=== PATIENT | female | born 1960 | race Caucasian/White ===

== ENCOUNTER 2016-12-09 09:02 | Day surgery (SDC) | payer OTHER ==
[~2016-12-09] VITALS: Ht 165.1 cm; Wt 86.2 kg
[~2016-12-09 09:02] MED LIST: ADULT LOW STREN81 M2 PO; AMITRIPTYLINE100 MG PO; ASPIR 8181 M1 PO; AZULFIDINE500 MG PO; CALCIUM 1,2001 EACH PO; CALCIUM 600 MG1 EACH PO; CELEBREX200 MG PO; DAILY VALUE1 EACH PO; DEXILANT30 MG PO; DEXILANT60 MG PO; DOLOPHINE HCL10 MG PO; DOLOPHINE HCL5 MG PO; KLONOPIN0.5 M1 PO; LINZESS290 MCG PO; MAGNESIUM OXID200 MG PO; MAGNESIUM400 M1 PO; MAGOX 400400 MG PO; MELADOX3 MG PO; MELATONIN5 M1 PO; MOBIC15 MG PO; MULTI-VITAMIN1 EAC1 PO; NEURONTIN600 M1 PO; NEURONTIN600 MG PO; PLAQUENIL200 MG PO; PLAVIX75 MG PO; PREMARIN0.625 MG PO; ROBAXIN500 MG PO; SEROQUEL12.5 MG PO; SULFAZINE500 M1 PO; SYNTHROID175 MCG PO; SYNTHROID200 MCG PO; VERAPAMIL HCL240 M1 PO; VERAPAMIL HCL240 MG PO; VITAMIN C2000 MG PO; VITAMIN D400 UNI1 PO; ZANAFLEX2 M1 PO; ZOLOFT100 MG PO; ZOLOFT25 MG PO; ZOLOFT50 MG PO
== END 2016-12-09 10:12 | disposition home or self-care (01) ==
LOC: PAIN 09:02 → SDC 09:45 → PAIN 09:45
DX: M47.894 Other spondylosis, thoracic region (principal); M54.14 Radiculopathy, thoracic region; F41.1 Generalized anxiety disorder; M79.1 Myalgia; M41.9 Scoliosis, unspecified; M46.1 Sacroiliitis, not elsewhere classified; F17.200 Nicotine dependence, unspecified, uncomplicated; M50.30 Other cervical disc degeneration, unspecified cervical region; K21.9 Gastro-esophageal reflux disease without esophagitis; M54.12 Radiculopathy, cervical region
CPT/HCPCS: J1030; J2250; J3010; S0020

== ENCOUNTER 2017-01-15 12:06 | Day surgery (SDC) | payer OTHER ==
[~2017-01-15] VITALS: Ht 165.1 cm; Wt 85.3 kg
== END 2017-01-15 14:13 | disposition home or self-care (01) ==
LOC: PAIN 12:06 → SDC 12:30 → PAIN 12:30
DX: M47.894 Other spondylosis, thoracic region (principal); F41.1 Generalized anxiety disorder; M41.9 Scoliosis, unspecified; M54.12 Radiculopathy, cervical region; E78.5 Hyperlipidemia, unspecified; F17.200 Nicotine dependence, unspecified, uncomplicated; M79.7 Fibromyalgia; K21.9 Gastro-esophageal reflux disease without esophagitis
CPT/HCPCS: J1030; J2250; J3010; S0020

== ENCOUNTER 2017-02-15 12:34 | Inpatient (IN) | payer OTHER ==
[~2017-02-15] VITALS: Ht 165.1 cm; Wt 91.5 kg
[2017-02-15 13:06] LABS: HEMATOCRIT 43.3 % (36.0-46.0); MCH 32.9 PG (29.0-34.0); MCHC 32.8 G/DL (30.0-36.0); MCV 100.5 FL (83-99); PLATELET COUNT 310 K/uL (156-360); RBC DIS.WIDTH-CV 12.4 % (11.8-14.6); RBC DIS.WIDTH-SD 46.8 % (39-53); RED BLOOD COUNT 4.31 M/uL (3.80-5.20); WHITE BLOOD COUNT 9.5 K/uL (4.1-10.2)
[2017-02-15 13:14] LABS: ADD MIUA? YES; BILIRUBIN NEGATIVE; BLOOD NEGATIVE; GLUCOSE (STRIP) NEGATIVE; KETONES NEGATIVE; LEUKOCYTES TRACE; NITRITE NEGATIVE; PROTEIN (STRIP) 30
[2017-02-15 13:15] LABS: COLOR YELLOW ((YELLOW))
[2017-02-15 13:16] LABS: CHLORIDE 100 mEq/L (99-109); POTASSIUM 4.1 mEq/L (3.7-5.4); SODIUM 137 mEq/L (136-147)
[2017-02-15 13:18] LABS: GLUCOSE 113 mg/dL (70-99)
[2017-02-15 13:19] LABS: ANION GAP 11 MEQ/L (2-14)
[2017-02-15 13:20] LABS: TOTAL BILIRUBIN 0.5 mg/dL (0.0-1.0)
[2017-02-15 13:21] LABS: ALKALINE PHOSPHATASE 72 IU/L (3-129)
[2017-02-15 13:22] LABS: GFR ESTIMATE (CALCULATED) > 59 mL/min/
[2017-02-15 13:23] LABS: UREA NITROGEN (BUN) 9 mg/dL (9-23)
[2017-02-15 13:36] LABS: BACTERIA RARE /HPF; EPITHELIAL CELLS 1+ /HPF; MUCUS NONE SEEN /LPF; RED BLOOD CELLS 0-5 /HPF (0-5); UCUL ADDED? NO; WHITE BLOOD CELLS 0-5 /HPF (0-5)
[2017-02-15 13:37] LABS: CASTS NONE SEEN /LPF; CRYSTALS NONE SEEN
[2017-02-15] MEDS ORDERED: DAILY VITE1 EAC1 PO (16:32)
[2017-02-15] MEDS ORDERED: DOCUSATE SODIU250 MG PO (16:32)
[2017-02-15] MEDS ORDERED: ESTRADIOL0.5 MG PO (16:33)
[2017-02-15 21:40] VITALS: BP 143/82
[2017-02-15 23:42] VITALS: BP 170/74
[2017-02-16 01:00] VITALS: BP 133/61
[2017-02-16 03:52] VITALS: BP 138/65
[2017-02-16 07:10] LABS: EOSINOPHIL (%) 0 % (0-5); HEMATOCRIT 40.6 % (36.0-46.0); IMMATURE GRANULOCYTE (%) 0.5 % (0.0-0.7); IMMATURE GRANULOCYTE COUNT 0.1 K/uL; INSTRUMENT ABS NEUTROPHIL CT 13.1 K/uL; LYMPHOCYTE COUNT 1.5 K/uL (1.0-2.8); MCH 33.1 PG (29.0-34.0); MCHC 32.8 G/DL (30.0-36.0); MEAN PLAT.VOLUME 11.4 uM^3 (9.5-12.4); MONOCYTE (%) 4.1 % (3-12); MONOCYTE COUNT 0.6 K/uL (0-0.8); NEUTROPHIL (%) 85.7 % (45-76); NEUTROPHIL COUNT 13.1 K/uL (1.8-6.4); PLATELET COUNT 273 K/uL (156-360); RBC DIS.WIDTH-CV 12.5 % (11.8-14.6); RBC DIS.WIDTH-SD 46.8 % (39-53); RED BLOOD COUNT 4.02 M/uL (3.80-5.20)
[2017-02-16 07:17] LABS: WHITE BLOOD COUNT 15.3 K/uL (4.1-10.2)
[2017-02-16 07:18] LABS: ANION GAP 8 MEQ/L (2-14); CHLORIDE 106 MEQ/L (99-109); GFR ESTIMATE (CALCULATED) > 59 mL/min/; GLUCOSE 86 mg/dL (70-99); POTASSIUM 3.9 MEQ/L (3.7-5.4); SAMPLE HEMOLYSIS CHECK 0; SAMPLE ICTERIC CHECK 0; SAMPLE LIPEMIA CHECK 0; SODIUM 141 MEQ/L (136-147); UREA NITROGEN (BUN) 7 mg/dL (9-23)
[2017-02-16 08:00] VITALS: BP 112/68
[2017-02-16 11:37] LABS: C DIFF TOXIN NEGATIVE (NEGATIVE)
[2017-02-16 11:52] LABS: PROBE CHECK PASS; SPECIMEN PROCESSING CONTROL PASS
[2017-02-16 12:35] VITALS: BP 133/75
[2017-02-16 16:16] VITALS: BP 142/69
[2017-02-16 23:35] VITALS: BP 160/77
[2017-02-17 07:13] LABS: HEMATOCRIT 39.3 % (36.0-46.0); MCH 32.6 PG (29.0-34.0); MCHC 32.6 G/DL (30.0-36.0); MEAN PLAT.VOLUME 10.5 uM^3 (9.5-12.4); PLATELET COUNT 256 K/uL (156-360); RBC DIS.WIDTH-CV 12.5 % (11.8-14.6); RBC DIS.WIDTH-SD 46.3 % (39-53); RED BLOOD COUNT 3.93 M/uL (3.80-5.20); WHITE BLOOD COUNT 12.4 K/uL (4.1-10.2)
[2017-02-17 07:39] LABS: ANION GAP 11 MEQ/L (2-14); CHLORIDE 106 MEQ/L (99-109); GFR ESTIMATE (CALCULATED) > 59 mL/min/; GLUCOSE 80 mg/dL (70-99); POTASSIUM 3.9 MEQ/L (3.7-5.4); SAMPLE HEMOLYSIS CHECK 0; SAMPLE ICTERIC CHECK 0; SAMPLE LIPEMIA CHECK 0; SODIUM 142 MEQ/L (136-147); UREA NITROGEN (BUN) 7 mg/dL (9-23)
[2017-02-17 08:16] VITALS: BP 170/76
[2017-02-17 11:30] VITALS: BP 156/72
[2017-02-17 16:11] VITALS: BP 190/91
[2017-02-17 23:25] VITALS: BP 147/65
[2017-02-18 00:01] LABS: POINT-OF-CARE METER ID UU14162508
[2017-02-18 06:20] LABS: POINT-OF-CARE METER ID UU14162508
[2017-02-18 07:23] LABS: ANION GAP 14 MEQ/L (2-14); CHLORIDE 106 MEQ/L (99-109); GFR ESTIMATE (CALCULATED) > 59 mL/min/; GLUCOSE 70 mg/dL (70-99); POTASSIUM 3.2 MEQ/L (3.7-5.4); SAMPLE HEMOLYSIS CHECK 0; SAMPLE ICTERIC CHECK 0; SAMPLE LIPEMIA CHECK 0; SODIUM 142 MEQ/L (136-147); UREA NITROGEN (BUN) 6 mg/dL (9-23)
[2017-02-18 07:41] LABS: HEMATOCRIT 37.9 % (36.0-46.0); MCH 32.9 PG (29.0-34.0); MCHC 33.2 G/DL (30.0-36.0); MEAN PLAT.VOLUME 10.5 uM^3 (9.5-12.4); PLATELET COUNT 261 K/uL (156-360); RBC DIS.WIDTH-CV 12.4 % (11.8-14.6); RBC DIS.WIDTH-SD 44.6 % (39-53); RED BLOOD COUNT 3.83 M/uL (3.80-5.20)
[2017-02-18 08:00] VITALS: BP 190/80
[2017-02-18 11:59] LABS: POINT-OF-CARE METER ID UU14162508
[2017-02-18 16:58] VITALS: BP 162/76
[2017-02-18 18:34] LABS: POINT-OF-CARE METER ID UU14162508
[2017-02-18 23:23] VITALS: BP 178/81
[2017-02-19 07:23] LABS: ANION GAP 8 MEQ/L (2-14); CHLORIDE 106 MEQ/L (99-109); GFR ESTIMATE (CALCULATED) > 59 mL/min/; POTASSIUM 3.5 MEQ/L (3.7-5.4); SAMPLE HEMOLYSIS CHECK 0; SAMPLE ICTERIC CHECK 0; SAMPLE LIPEMIA CHECK 0; SODIUM 141 MEQ/L (136-147); UREA NITROGEN (BUN) 6 mg/dL (9-23)
[2017-02-19 07:24] LABS: GLUCOSE 113 mg/dL (70-99)
[2017-02-19 07:45] VITALS: BP 172/80
[2017-02-19 10:10] VITALS: BP 154/78
[2017-02-19 10:20] LABS: MAGNESIUM 1.6 mg/dl (1.3-2.7)
[2017-02-19 12:00] VITALS: BP 148/77
[2017-02-19 15:35] VITALS: BP 146/65
[2017-02-19 21:19] VITALS: BP 191/84
[2017-02-20 01:28] VITALS: BP 136/63
[2017-02-20 03:06] VITALS: BP 144/65
[2017-02-20 06:36] LABS: POINT-OF-CARE METER ID UU14162508
[2017-02-20 06:51] VITALS: BP 149/70
[2017-02-20 06:52] LABS: ANION GAP 8 MEQ/L (2-14); CHLORIDE 107 MEQ/L (99-109); GFR ESTIMATE (CALCULATED) > 59 mL/min/; GLUCOSE 131 mg/dL (70-99); POTASSIUM 3.7 MEQ/L (3.7-5.4); SAMPLE HEMOLYSIS CHECK 0; SAMPLE ICTERIC CHECK 0; SAMPLE LIPEMIA CHECK 0; SODIUM 142 MEQ/L (136-147); UREA NITROGEN (BUN) 5 mg/dL (9-23)
[2017-02-20 10:27] VITALS: BP 143/81
[2017-02-20 15:10] VITALS: BP 150/75
[2017-02-20 23:27] VITALS: BP 146/71
[2017-02-21 06:53] VITALS: BP 137/63
[2017-02-21 07:33] LABS: ANION GAP 9 MEQ/L (2-14); CHLORIDE 104 MEQ/L (99-109); GFR ESTIMATE (CALCULATED) > 59 mL/min/; GLUCOSE 100 mg/dL (70-99); POTASSIUM 3.4 MEQ/L (3.7-5.4); SAMPLE HEMOLYSIS CHECK 0; SAMPLE ICTERIC CHECK 0; SAMPLE LIPEMIA CHECK 0; SODIUM 141 MEQ/L (136-147); UREA NITROGEN (BUN) 6 mg/dL (9-23)
[2017-02-21] MEDS ORDERED: SULFAZINE500 M1 PO (08:04)
[2017-02-21] MEDS ORDERED: NICOTINE PATCH1 EAC2 TD (08:12)
[2017-02-21] MEDS ORDERED: PREDNISONE10 MG PO (08:12)
[2017-02-21] MEDS ORDERED: FLAGYL500 MG PO (08:12)
[2017-02-21] MEDS ORDERED: PROCARDIA20 MG PO (08:12)
[2017-02-21] MEDS ORDERED: CIPRO500 MG PO (08:12)
== END 2017-02-21 14:45 | disposition home or self-care (01) | DRG 386 ==
LOC: EME 12:34 → 2EAST 20:11 → EDOF 20:11 → 2EAST 21:01
PROVIDERS: Hospitalist
DX: K50.012 Crohn's disease of small intestine with intestinal obstruction (principal); E87.6 Hypokalemia; I10 Essential (primary) hypertension; E03.9 Hypothyroidism, unspecified; M06.9 Rheumatoid arthritis, unspecified; I73.9 Peripheral vascular disease, unspecified; Z95.820 Peripheral vascular angioplasty status with implants and grafts; F32.9 Major depressive disorder, single episode, unspecified; G89.4 Chronic pain syndrome; Z79.891 Long term (current) use of opiate analgesic; E66.9 Obesity, unspecified; Z68.33 Body mass index [BMI] 33.0-33.9, adult; M79.7 Fibromyalgia; K21.9 Gastro-esophageal reflux disease without esophagitis; G43.909 Migraine, unspecified, not intractable, without status migrainosus; F17.210 Nicotine dependence, cigarettes, uncomplicated; Z86.73 Personal history of transient ischemic attack (TIA), and cerebral infarction without residual deficits; Z86.010 Personal history of colon polyps
CPT/HCPCS: 71010; 74000; 74020; 74176; 74177; 80048; 80053; 81003; 82948; 83605; 83735; 85025; 85027; 86140; 87493; 99281; 99285; J0360; J0744; J1170; J1200; J1644; J2405; J2920; J2930; J3475; J3480; J7030; J7042; J7050; S0028; S0030

== ENCOUNTER 2017-03-15 03:56 | Inpatient (IN) | payer OTHER ==
[~2017-03-15] VITALS: Ht 165.1 cm; Wt 90.7 kg
[~2017-03-15 03:56] MED LIST changes: +CIPRO500 MG PO; +DAILY VITE1 EAC1 PO; +DOCUSATE SODIU250 MG PO; +ESTRADIOL0.5 MG PO; +FLAGYL500 MG PO; +NICOTINE PATCH1 EAC2 TD; +PREDNISONE10 MG PO; +PROCARDIA20 MG PO
[2017-03-15 04:55] LABS: EOSINOPHIL (%) 1.4 % (0-5); EOSINOPHIL COUNT 0.3 K/uL (0-0.3); IMMATURE GRANULOCYTE (%) 0.5 % (0.0-0.7); IMMATURE GRANULOCYTE COUNT 0.1 K/uL; INSTRUMENT ABS NEUTROPHIL CT 13.4 K/uL; LYMPHOCYTE COUNT 4.6 K/uL (1.0-2.8); MCH 33.2 PG (29.0-34.0); MCHC 33.9 G/DL (30.0-36.0); MEAN PLAT.VOLUME 10.5 uM^3 (9.5-12.4); MONOCYTE (%) 4.1 % (3-12); MONOCYTE COUNT 0.8 K/uL (0-0.8); NEUTROPHIL (%) 69.6 % (45-76); NEUTROPHIL COUNT 13.4 K/uL (1.8-6.4); PLATELET COUNT 319 K/uL (156-360); RBC DIS.WIDTH-CV 12.9 % (11.8-14.6); RBC DIS.WIDTH-SD 46.3 % (39-53)
[2017-03-15 05:03] LABS: RED BLOOD COUNT 5.51 M/uL (3.80-5.20); WHITE BLOOD COUNT 19.2 K/uL (4.1-10.2)
[2017-03-15 05:15] LABS: CHLORIDE 97 mEq/L (99-109); POTASSIUM 3.8 mEq/L (3.7-5.4); SODIUM 141 mEq/L (136-147)
[2017-03-15 05:17] LABS: GLUCOSE 159 mg/dL (70-99)
[2017-03-15 05:18] LABS: ANION GAP 20 MEQ/L (2-14)
[2017-03-15 05:19] LABS: TOTAL BILIRUBIN 0.6 mg/dL (0.0-1.0)
[2017-03-15 05:20] LABS: ALKALINE PHOSPHATASE 100 IU/L (3-129)
[2017-03-15 05:21] LABS: GFR ESTIMATE (CALCULATED) 54 mL/min/
[2017-03-15 05:22] LABS: UREA NITROGEN (BUN) 11 mg/dL (9-23)
[2017-03-15 05:24] LABS: LIPASE 16 U/L (1.0-51.0)
[2017-03-15 14:50] VITALS: BP 176/77
[2017-03-15 18:42] LABS: INTACT PARATHYROID HORMONE 76 pg/mL (10-69)
[2017-03-15 18:53] VITALS: BP 177/79
[2017-03-15] MEDS ORDERED: NICOTINE PATCH1 EAC2 TD (20:02)
[2017-03-15] MEDS ORDERED: PREDNISONE10 MG PO (20:04)
[2017-03-15] MEDS ORDERED: SULFASALAZINE500 MG PO (20:06)
[2017-03-15 23:20] VITALS: BP 175/81
[2017-03-16 03:01] VITALS: BP 132/77
[2017-03-16 07:17] LABS: ANION GAP 7 MEQ/L (2-14); CHLORIDE 103 MEQ/L (99-109); GLUCOSE 145 mg/dL (70-99); POTASSIUM 4.3 MEQ/L (3.7-5.4); SAMPLE HEMOLYSIS CHECK 0; SAMPLE ICTERIC CHECK 0; SAMPLE LIPEMIA CHECK 0; SODIUM 138 MEQ/L (136-147); UREA NITROGEN (BUN) 9 mg/dL (9-23)
[2017-03-16 07:20] LABS: GFR ESTIMATE (CALCULATED) > 59 mL/min/
[2017-03-16 08:10] VITALS: BP 165/72
[2017-03-16 10:05] LABS: HEMATOCRIT 37.9 % (36.0-46.0); MCH 33.2 PG (29.0-34.0); MCHC 32.2 G/DL (30.0-36.0); RBC DIS.WIDTH-CV 13.3 % (11.8-14.6); RBC DIS.WIDTH-SD 51.2 % (39-53); WHITE BLOOD COUNT 13.9 K/uL (4.1-10.2)
[2017-03-16 10:06] LABS: RED BLOOD COUNT 3.67 M/uL (3.80-5.20)
[2017-03-16 10:07] LABS: MCV 103.3 FL (83-99)
[2017-03-16 10:25] LABS: MEAN PLAT.VOLUME 10.6 uM^3 (9.5-12.4); PLAT.SUFFICIENCY ADEQUATE
[2017-03-16 10:31] LABS: PLATELET COUNT 209 K/uL (156-360)
[2017-03-16 12:24] VITALS: BP 163/71
[2017-03-16 16:10] VITALS: BP 154/70
[2017-03-16 19:20] VITALS: BP 174/78
[2017-03-16 23:59] VITALS: BP 168/73
[2017-03-17 04:13] VITALS: BP 169/73
[2017-03-17 07:05] LABS: HEMATOCRIT 37.7 % (36.0-46.0); MCH 32.7 PG (29.0-34.0); MCHC 32.1 G/DL (30.0-36.0); MCV 101.9 FL (83-99); MEAN PLAT.VOLUME 10.2 uM^3 (9.5-12.4); PLATELET COUNT 206 K/uL (156-360); RBC DIS.WIDTH-CV 13.2 % (11.8-14.6); RBC DIS.WIDTH-SD 49.8 % (39-53); WHITE BLOOD COUNT 13.7 K/uL (4.1-10.2)
[2017-03-17 07:23] VITALS: BP 178/82
[2017-03-17 07:24] LABS: ANION GAP 8 MEQ/L (2-14); CHLORIDE 105 MEQ/L (99-109); GFR ESTIMATE (CALCULATED) > 59 mL/min/; GLUCOSE 144 mg/dL (70-99); POTASSIUM 4.2 MEQ/L (3.7-5.4); SAMPLE HEMOLYSIS CHECK 0; SAMPLE ICTERIC CHECK 0; SAMPLE LIPEMIA CHECK 0; SODIUM 142 MEQ/L (136-147); UREA NITROGEN (BUN) 7 mg/dL (9-23)
[2017-03-17 11:40] VITALS: BP 190/84
[2017-03-17 15:29] VITALS: BP 182/83
[2017-03-17 19:22] VITALS: BP 180/83
[2017-03-17 23:17] VITALS: BP 138/68
[2017-03-18 03:24] VITALS: BP 183/80
[2017-03-18 06:25] LABS: EOSINOPHIL (%) 0 % (0-5); HEMATOCRIT 35.2 % (36.0-46.0); IMMATURE GRANULOCYTE (%) 0.5 % (0.0-0.7); IMMATURE GRANULOCYTE COUNT 0.1 K/uL; INSTRUMENT ABS NEUTROPHIL CT 8.7 K/uL; LYMPHOCYTE COUNT 0.8 K/uL (1.0-2.8); MCH 32.9 PG (29.0-34.0); MCHC 32.4 G/DL (30.0-36.0); MCV 101.7 FL (83-99); MEAN PLAT.VOLUME 10.3 uM^3 (9.5-12.4); MONOCYTE (%) 3.2 % (3-12); MONOCYTE COUNT 0.3 K/uL (0-0.8); NEUTROPHIL (%) 88.4 % (45-76); NEUTROPHIL COUNT 8.7 K/uL (1.8-6.4); PLATELET COUNT 205 K/uL (156-360); RBC DIS.WIDTH-CV 13.1 % (11.8-14.6); RBC DIS.WIDTH-SD 49.1 % (39-53); RED BLOOD COUNT 3.46 M/uL (3.80-5.20); WHITE BLOOD COUNT 9.8 K/uL (4.1-10.2)
[2017-03-18 06:49] LABS: ANION GAP 8 MEQ/L (2-14); CHLORIDE 106 MEQ/L (99-109); GFR ESTIMATE (CALCULATED) > 59 mL/min/; GLUCOSE 154 mg/dL (70-99); POTASSIUM 4.2 MEQ/L (3.7-5.4); SAMPLE HEMOLYSIS CHECK 0; SAMPLE ICTERIC CHECK 0; SAMPLE LIPEMIA CHECK 0; SODIUM 143 MEQ/L (136-147); UREA NITROGEN (BUN) 10 mg/dL (9-23)
[2017-03-18 19:14] VITALS: BP 181/79
[2017-03-18 20:27] VITALS: BP 170/62
[2017-03-18 23:04] VITALS: BP 185/76
[2017-03-18 23:08] VITALS: BP 172/62
[2017-03-19 03:04] VITALS: BP 165/73
[2017-03-19 06:52] LABS: EOSINOPHIL (%) 0.3 % (0-5); HEMATOCRIT 35.1 % (36.0-46.0); IMMATURE GRANULOCYTE (%) 0.5 % (0.0-0.7); IMMATURE GRANULOCYTE COUNT 0.1 K/uL; INSTRUMENT ABS NEUTROPHIL CT 6.6 K/uL; LYMPHOCYTE COUNT 2.3 K/uL (1.0-2.8); MCH 33.5 PG (29.0-34.0); MCHC 32.8 G/DL (30.0-36.0); MCV 102.3 FL (83-99); MEAN PLAT.VOLUME 10.7 uM^3 (9.5-12.4); MONOCYTE (%) 6.1 % (3-12); MONOCYTE COUNT 0.6 K/uL (0-0.8); NEUTROPHIL (%) 69.2 % (45-76); NEUTROPHIL COUNT 6.6 K/uL (1.8-6.4); PLATELET COUNT 243 K/uL (156-360); RBC DIS.WIDTH-CV 13.5 % (11.8-14.6); RED BLOOD COUNT 3.43 M/uL (3.80-5.20); WHITE BLOOD COUNT 9.6 K/uL (4.1-10.2)
[2017-03-19 07:15] LABS: ANION GAP 8 MEQ/L (2-14); CHLORIDE 107 MEQ/L (99-109); GFR ESTIMATE (CALCULATED) > 59 mL/min/; POTASSIUM 3.6 MEQ/L (3.7-5.4); SAMPLE HEMOLYSIS CHECK 0; SAMPLE ICTERIC CHECK 0; SAMPLE LIPEMIA CHECK 0; SODIUM 143 MEQ/L (136-147); UREA NITROGEN (BUN) 9 mg/dL (9-23)
[2017-03-19 07:17] LABS: GLUCOSE 104 mg/dL (70-99)
[2017-03-19 07:20] VITALS: BP 169/72
[2017-03-19] MEDS ORDERED: DILAUDID4 MG PO (10:27)
[2017-03-19] MEDS ORDERED: BENADRYL25 MG PO (10:27)
[2017-03-19] MEDS ORDERED: LISINOPRIL20 MG PO ×2 (10:43→13:54)
[2017-03-19] MEDS ORDERED: NICOTINE PATCH1 EAC1 TD (10:43)
[2017-03-19] MEDS ORDERED: LOPRESSOR50 MG PO (10:43)
[2017-03-19] MEDS ORDERED: DUONEB 2.5-0.5 M3 ML AEROSOL (10:43)
[2017-03-19] MEDS ORDERED: SPIRIVA RESPIMAT4 GM IH (10:43)
[2017-03-19] MEDS ORDERED: PROCARDIA20 MG PO (10:43)
[2017-03-19] MEDS ORDERED: AMOX TR-K CLV1 EAC4 PO (10:51)
[2017-03-19 11:32] VITALS: BP 172/74
[2017-03-19 15:45] VITALS: BP 188/64
[2017-03-19 16:53] VITALS: BP 143/80
[2017-03-19 19:44] VITALS: BP 152/67
[2017-03-20] VITALS (7 sets, daily range): BP systolic 119–166; BP diastolic 58–92
[2017-03-20 07:26] LABS: HEMATOCRIT 35.2 % (36.0-46.0); MCHC 32.1 G/DL (30.0-36.0); MCV 102.9 FL (83-99); MEAN PLAT.VOLUME 10.3 uM^3 (9.5-12.4); PLATELET COUNT 228 K/uL (156-360); RBC DIS.WIDTH-CV 13.2 % (11.8-14.6); RBC DIS.WIDTH-SD 50.1 % (39-53); RED BLOOD COUNT 3.42 M/uL (3.80-5.20); WHITE BLOOD COUNT 7.7 K/uL (4.1-10.2)
[2017-03-20 07:50] LABS: ANION GAP 7 MEQ/L (2-14); CHLORIDE 104 MEQ/L (99-109); GFR ESTIMATE (CALCULATED) > 59 mL/min/; GLUCOSE 97 mg/dL (70-99); POTASSIUM 3.6 MEQ/L (3.7-5.4); SAMPLE HEMOLYSIS CHECK 0; SAMPLE ICTERIC CHECK 0; SAMPLE LIPEMIA CHECK 0; SODIUM 141 MEQ/L (136-147); UREA NITROGEN (BUN) 8 mg/dL (9-23)
[2017-03-20] MEDS ORDERED: HYDROMORPHONE HC4 MG PO (07:59)
[2017-03-21 06:51] LABS: HEMATOCRIT 37.4 % (36.0-46.0); MCH 32.8 PG (29.0-34.0); MCHC 32.1 G/DL (30.0-36.0); MCV 102.2 FL (83-99); MEAN PLAT.VOLUME 10.5 uM^3 (9.5-12.4); PLATELET COUNT 247 K/uL (156-360); RBC DIS.WIDTH-CV 13.1 % (11.8-14.6); RBC DIS.WIDTH-SD 48.7 % (39-53); RED BLOOD COUNT 3.66 M/uL (3.80-5.20); WHITE BLOOD COUNT 7.7 K/uL (4.1-10.2)
[2017-03-21 07:06] LABS: ANION GAP 7 MEQ/L (2-14); CHLORIDE 103 MEQ/L (99-109); GFR ESTIMATE (CALCULATED) > 59 mL/min/; GLUCOSE 105 mg/dL (70-99); SAMPLE HEMOLYSIS CHECK 0; SAMPLE ICTERIC CHECK 0; SAMPLE LIPEMIA CHECK 0; SODIUM 142 MEQ/L (136-147); UREA NITROGEN (BUN) 8 mg/dL (9-23)
[2017-03-21 08:00] VITALS: BP 128/59
[2017-03-21] MEDS ORDERED: ZOFRAN4 MG PO (13:27)
[2017-03-21 15:15] VITALS: BP 143/84
[2017-03-21 20:24] LABS: C DIFF TOXIN NEGATIVE (NEGATIVE)
[2017-03-21 20:42] LABS: PROBE CHECK PASS; SPECIMEN PROCESSING CONTROL PASS
[2017-03-21 23:27] VITALS: BP 173/74
[2017-03-22 07:07] VITALS: BP 118/59
[2017-03-22 07:12] VITALS: BP 150/65
[2017-03-22 07:39] LABS: ANION GAP 8 MEQ/L (2-14); CHLORIDE 103 MEQ/L (99-109); GFR ESTIMATE (CALCULATED) > 59 mL/min/; GLUCOSE 111 mg/dL (70-99); POTASSIUM 4.3 MEQ/L (3.7-5.4); SAMPLE HEMOLYSIS CHECK 0; SAMPLE ICTERIC CHECK 0; SAMPLE LIPEMIA CHECK 0; SODIUM 141 MEQ/L (136-147); UREA NITROGEN (BUN) 6 mg/dL (9-23)
[2017-03-22 07:42] LABS: HEMATOCRIT 38.6 % (36.0-46.0); MCH 32.4 PG (29.0-34.0); MCHC 31.9 G/DL (30.0-36.0); MCV 101.6 FL (83-99); MEAN PLAT.VOLUME 10.4 uM^3 (9.5-12.4); PLATELET COUNT 261 K/uL (156-360); RBC DIS.WIDTH-CV 13.1 % (11.8-14.6); RBC DIS.WIDTH-SD 48.4 % (39-53)
[2017-03-22 08:07] LABS: WHITE BLOOD COUNT 10.5 K/uL (4.1-10.2)
== END 2017-03-22 12:52 | disposition home or self-care (01) | DRG 335 ==
LOC: EME 03:56 → SDC 11:17 → 2EAST 12:59 → 2SOUTH 12:59 → 2EAST 14:34
PROVIDERS: Emergency Medicine; Surgery
DX: K56.5 Intestinal adhesions [bands] with obstruction (postinfection) (principal); K65.0 Generalized (acute) peritonitis; J96.01 Acute respiratory failure with hypoxia; J69.0 Pneumonitis due to inhalation of food and vomit; J44.1 Chronic obstructive pulmonary disease with (acute) exacerbation; E83.52 Hypercalcemia; E86.0 Dehydration; K29.61 Other gastritis with bleeding; F11.20 Opioid dependence, uncomplicated; K58.9 Irritable bowel syndrome, unspecified; J45.909 Unspecified asthma, uncomplicated; E78.00 Pure hypercholesterolemia, unspecified; E78.1 Pure hyperglyceridemia; I25.10 Atherosclerotic heart disease of native coronary artery without angina pectoris; I10 Essential (primary) hypertension; E03.9 Hypothyroidism, unspecified; K21.9 Gastro-esophageal reflux disease without esophagitis; M06.9 Rheumatoid arthritis, unspecified; F32.9 Major depressive disorder, single episode, unspecified; M79.7 Fibromyalgia; G47.9 Sleep disorder, unspecified; G89.4 Chronic pain syndrome; F17.210 Nicotine dependence, cigarettes, uncomplicated; E66.9 Obesity, unspecified; Z88.5 Allergy status to narcotic agent; Z68.33 Body mass index [BMI] 33.0-33.9, adult; Z79.52 Long term (current) use of systemic steroids
CPT/HCPCS: 71010; 74177; 80048; 80053; 81003; 83605; 83690; 83970; 85025; 85027; 87070; 87205; 87493; 88304; 93005; 94010; 94640; 94640 76; 94799; 99202; 99281; 99285; C9113; J0330; J0360; J1100; J1170; J1200; J1650; J1720; J2405; J2543; J2710; J2765; J2930; J3010; J7030; J7050; J7512; P9045; S0028

== ENCOUNTER 2017-03-26 14:53 | Emergency (ER) | payer OTHER ==
[~2017-03-26] VITALS: Ht 165.1 cm; Wt 90.5 kg
[~2017-03-26 14:53] MED LIST changes: +AMOX TR-K CLV1 EAC4 PO; +BENADRYL25 MG PO; +DILAUDID4 MG PO; +DUONEB 2.5-0.5 M3 ML AEROSOL; +HYDROMORPHONE HC4 MG PO; +LISINOPRIL20 MG PO; +LOPRESSOR50 MG PO; +NICOTINE PATCH1 EAC1 TD; +SPIRIVA RESPIMAT4 GM IH; +SULFASALAZINE500 MG PO; +ZOFRAN4 MG PO
[2017-03-26 15:40] LABS: EOSINOPHIL (%) 0.7 % (0-5); EOSINOPHIL COUNT 0.1 K/uL (0-0.3); HEMATOCRIT 41.7 % (36.0-46.0); IMMATURE GRANULOCYTE (%) 1.5 % (0.0-0.7); IMMATURE GRANULOCYTE COUNT 0.2 K/uL; INSTRUMENT ABS NEUTROPHIL CT 9.7 K/uL; LYMPHOCYTE COUNT 2.6 K/uL (1.0-2.8); MCH 32.9 PG (29.0-34.0); MCHC 32.4 G/DL (30.0-36.0); MCV 101.7 FL (83-99); MEAN PLAT.VOLUME 9.8 uM^3 (9.5-12.4); MONOCYTE (%) 5.9 % (3-12); MONOCYTE COUNT 0.8 K/uL (0-0.8); NEUTROPHIL (%) 72.2 % (45-76); NEUTROPHIL COUNT 9.7 K/uL (1.8-6.4); PLATELET COUNT 335 K/uL (156-360); RBC DIS.WIDTH-CV 13.2 % (11.8-14.6); RBC DIS.WIDTH-SD 49.7 % (39-53); WHITE BLOOD COUNT 13.4 K/uL (4.1-10.2)
[2017-03-26 15:53] LABS: D-DIMER ELISA 1.37 mg/L FEU (< 0.57); PROTHROMBIN TIME 10.3 (9.2-11.2); PTT 25.4 (25-32)
[2017-03-26 15:54] LABS: CHLORIDE 101 mEq/L (99-109); POTASSIUM 4.7 mEq/L (3.7-5.4); SODIUM 135 mEq/L (136-147)
[2017-03-26 15:56] LABS: GLUCOSE 80 mg/dL (70-99)
[2017-03-26 15:57] LABS: ANION GAP 10 MEQ/L (2-14)
[2017-03-26 15:59] LABS: GFR ESTIMATE (CALCULATED) > 59 mL/min/
[2017-03-26 16:00] LABS: UREA NITROGEN (BUN) 10 mg/dL (9-23)
[2017-03-26 16:04] LABS: TROP-I INTERPRETATION NEGATIVE; TROPONIN-I < 0.01 ng/mL (0.0-0.30)
[2017-03-26 20:28] VITALS: BP 120/65
== END 2017-03-26 20:36 | disposition home or self-care (01) ==
LOC: EME → EDBD 14:53 → EME 20:36
PROVIDERS: Emergency Medicine
DX: R42 Dizziness and giddiness (principal); I10 Essential (primary) hypertension; E03.9 Hypothyroidism, unspecified; K21.9 Gastro-esophageal reflux disease without esophagitis; Z72.0 Tobacco use; Z86.73 Personal history of transient ischemic attack (TIA), and cerebral infarction without residual deficits; Z87.442 Personal history of urinary calculi; Z88.6 Allergy status to analgesic agent
CPT/HCPCS: 71010; 71275; 80048; 84484; 85025; 85379; 85610; 85730; 93005; 99281; 99285; J2405; J7030

== ENCOUNTER 2017-04-21 07:57 | Day surgery (SDC) | payer OTHER ==
[~2017-04-21] VITALS: Ht 165.1 cm; Wt 78.9 kg
[~2017-04-21 07:57] MED LIST changes: +CALCIUM 500 +1 EAC5 PO; +NICODERM CQ1 EAC2 TD; +SULFAZINE500 MG PO
[2017-04-21] MEDS ORDERED: BACTRIM,SEPT1 TABLE1 PO (08:17)
== END 2017-04-21 09:40 | disposition home or self-care (01) ==
LOC: PAIN 07:57 → SDC 08:30 → PAIN 09:40
PROC: 3E0T3TZ Introduction of Destructive Agent into Peripheral Nerves and Plexi, Percutaneous Approach (ICD-10-PCS; principal; 2017-04-21)
DX: M47.814 Spondylosis without myelopathy or radiculopathy, thoracic region (principal); F41.9 Anxiety disorder, unspecified; M51.36 Other intervertebral disc degeneration, lumbar region; M54.6 Pain in thoracic spine; M54.81 Occipital neuralgia; G89.29 Other chronic pain; F17.200 Nicotine dependence, unspecified, uncomplicated; M06.9 Rheumatoid arthritis, unspecified; K21.9 Gastro-esophageal reflux disease without esophagitis; K76.0 Fatty (change of) liver, not elsewhere classified; E03.9 Hypothyroidism, unspecified; Z79.891 Long term (current) use of opiate analgesic; K27.9 Peptic ulcer, site unspecified, unspecified as acute or chronic, without hemorrhage or perforation; Z88.5 Allergy status to narcotic agent; Z88.8 Allergy status to other drugs, medicaments and biological substances
CPT/HCPCS: J1030; J2250; J3010

== ENCOUNTER 2017-04-28 07:58 | Day surgery (SDC) | payer OTHER ==
[~2017-04-28] VITALS: Ht 165.1 cm; Wt 78.9 kg
[~2017-04-28 07:58] MED LIST changes: +BACTRIM,SEPT1 TABLE1 PO
== END 2017-04-28 09:21 | disposition home or self-care (01) ==
LOC: PAIN 07:58 → SDC 08:30 → PAIN 09:21
DX: M47.814 Spondylosis without myelopathy or radiculopathy, thoracic region (principal); M54.9 Dorsalgia, unspecified; G89.29 Other chronic pain; M47.812 Spondylosis without myelopathy or radiculopathy, cervical region; M50.30 Other cervical disc degeneration, unspecified cervical region; M46.1 Sacroiliitis, not elsewhere classified; M48.02 Spinal stenosis, cervical region; M54.12 Radiculopathy, cervical region; I10 Essential (primary) hypertension; E03.9 Hypothyroidism, unspecified; M06.9 Rheumatoid arthritis, unspecified; M79.1 Myalgia; F41.1 Generalized anxiety disorder; E78.5 Hyperlipidemia, unspecified; I73.9 Peripheral vascular disease, unspecified; E55.9 Vitamin D deficiency, unspecified; K21.9 Gastro-esophageal reflux disease without esophagitis; F17.210 Nicotine dependence, cigarettes, uncomplicated; Z86.73 Personal history of transient ischemic attack (TIA), and cerebral infarction without residual deficits; Z79.82 Long term (current) use of aspirin
CPT/HCPCS: J1030; J2250; J3010; S0020

== ENCOUNTER 2017-07-28 06:57 | Day surgery (SDC) | payer OTHER ==
[~2017-07-28] VITALS: Ht 167.6 cm; Wt 74.4 kg
[~2017-07-28 06:57] MED LIST changes: +CHANTIX1 EACH PO
== END 2017-07-28 08:56 | disposition home or self-care (01) ==
LOC: PAIN 06:57 → SDC 07:30 → PAIN 08:56
DX: M47.812 Spondylosis without myelopathy or radiculopathy, cervical region (principal); M50.31 Other cervical disc degeneration, high cervical region; M54.2 Cervicalgia; G89.29 Other chronic pain; M48.02 Spinal stenosis, cervical region; Z79.82 Long term (current) use of aspirin; F17.210 Nicotine dependence, cigarettes, uncomplicated; E03.9 Hypothyroidism, unspecified; I73.9 Peripheral vascular disease, unspecified; M06.9 Rheumatoid arthritis, unspecified; M47.816 Spondylosis without myelopathy or radiculopathy, lumbar region; M79.7 Fibromyalgia; M46.1 Sacroiliitis, not elsewhere classified; K21.9 Gastro-esophageal reflux disease without esophagitis; Z79.899 Other long term (current) drug therapy
CPT/HCPCS: J1030; J2250; J3010; S0020

== ENCOUNTER 2017-08-04 07:07 | Day surgery (SDC) | payer OTHER ==
[~2017-08-04] VITALS: Ht 167.6 cm; Wt 74.4 kg
[~2017-08-04 07:07] MED LIST changes: +LIORESAL10 MG PO; +SEROQUEL100 MG PO; -SEROQUEL12.5 MG PO
== END 2017-08-04 08:53 | disposition home or self-care (01) ==
LOC: PAIN 07:07 → SDC 07:30 → PAIN 07:30
DX: M47.22 Other spondylosis with radiculopathy, cervical region (principal); M54.2 Cervicalgia; G89.29 Other chronic pain; M48.02 Spinal stenosis, cervical region; F17.210 Nicotine dependence, cigarettes, uncomplicated; E78.5 Hyperlipidemia, unspecified; M47.816 Spondylosis without myelopathy or radiculopathy, lumbar region; M46.1 Sacroiliitis, not elsewhere classified; M79.1 Myalgia; M79.7 Fibromyalgia; M06.9 Rheumatoid arthritis, unspecified; K21.9 Gastro-esophageal reflux disease without esophagitis; E03.9 Hypothyroidism, unspecified; Z79.82 Long term (current) use of aspirin; Z95.5 Presence of coronary angioplasty implant and graft; Z86.73 Personal history of transient ischemic attack (TIA), and cerebral infarction without residual deficits; F11.90 Opioid use, unspecified, uncomplicated
CPT/HCPCS: J1030; J2250; J3010; S0020

== ENCOUNTER 2017-08-18 09:53 | Day surgery (SDC) | payer OTHER ==
[~2017-08-18] VITALS: Ht 167.6 cm; Wt 74.4 kg
[2017-08-18] MEDS ORDERED: HAIR, SKIN AND1 EAC1 PO (10:23)
== END 2017-08-18 11:58 | disposition home or self-care (01) ==
LOC: PAIN 09:53 → SDC 10:30 → PAIN 11:58
DX: M47.22 Other spondylosis with radiculopathy, cervical region (principal); M50.11 Cervical disc disorder with radiculopathy, high cervical region; I10 Essential (primary) hypertension; K21.9 Gastro-esophageal reflux disease without esophagitis; E03.9 Hypothyroidism, unspecified; M47.816 Spondylosis without myelopathy or radiculopathy, lumbar region; M47.814 Spondylosis without myelopathy or radiculopathy, thoracic region; F17.200 Nicotine dependence, unspecified, uncomplicated; Z79.891 Long term (current) use of opiate analgesic; M48.02 Spinal stenosis, cervical region; Z79.82 Long term (current) use of aspirin; M79.7 Fibromyalgia; M06.9 Rheumatoid arthritis, unspecified; M46.1 Sacroiliitis, not elsewhere classified; R94.31 Abnormal electrocardiogram [ECG] [EKG]
CPT/HCPCS: J1030; J2250; J3010; S0020

== ENCOUNTER 2017-08-27 12:59 | Day surgery (SDC) | payer OTHER ==
[~2017-08-27] VITALS: Ht 167.6 cm; Wt 74.4 kg
[~2017-08-27 12:59] MED LIST changes: +HAIR, SKIN AND1 EAC1 PO
== END 2017-08-27 13:49 | disposition home or self-care (01) ==
LOC: PAIN 12:59
PROC: 01513ZZ Destruction of Cervical Nerve, Percutaneous Approach (ICD-10-PCS; principal; 2017-08-27)
DX: M54.12 Radiculopathy, cervical region (principal); M48.02 Spinal stenosis, cervical region; M50.30 Other cervical disc degeneration, unspecified cervical region; M47.816 Spondylosis without myelopathy or radiculopathy, lumbar region; F17.200 Nicotine dependence, unspecified, uncomplicated; M19.90 Unspecified osteoarthritis, unspecified site; G89.29 Other chronic pain; M79.7 Fibromyalgia; Z79.891 Long term (current) use of opiate analgesic; I73.9 Peripheral vascular disease, unspecified; M85.80 Other specified disorders of bone density and structure, unspecified site; E55.9 Vitamin D deficiency, unspecified; Z79.82 Long term (current) use of aspirin; Z88.5 Allergy status to narcotic agent
CPT/HCPCS: J1030; J1885; J2250; J3010; S0020

== ENCOUNTER 2017-08-31 08:02 | Day surgery (SDC) | payer OTHER ==
[~2017-08-31] VITALS: Ht 167.6 cm; Wt 74.4 kg
== END 2017-08-31 10:40 | disposition home or self-care (01) ==
LOC: PAIN 08:02 → SDC 10:15 → PAIN 10:15
DX: M47.816 Spondylosis without myelopathy or radiculopathy, lumbar region (principal); M47.814 Spondylosis without myelopathy or radiculopathy, thoracic region; M48.02 Spinal stenosis, cervical region; M54.12 Radiculopathy, cervical region; M79.7 Fibromyalgia; M19.90 Unspecified osteoarthritis, unspecified site; G89.29 Other chronic pain; Z79.891 Long term (current) use of opiate analgesic; M06.9 Rheumatoid arthritis, unspecified; F41.1 Generalized anxiety disorder; E78.5 Hyperlipidemia, unspecified; E03.9 Hypothyroidism, unspecified; Z86.73 Personal history of transient ischemic attack (TIA), and cerebral infarction without residual deficits; Z79.82 Long term (current) use of aspirin; F17.200 Nicotine dependence, unspecified, uncomplicated
CPT/HCPCS: J1030; J2250; J3010; S0020

== ENCOUNTER 2017-09-07 09:41 | Day surgery (SDC) | payer OTHER ==
[~2017-09-07] VITALS: Ht 167.6 cm; Wt 74.4 kg
== END 2017-09-07 11:25 | disposition home or self-care (01) ==
LOC: PAIN 09:41 → SDC 10:15 → PAIN 10:15
DX: M47.816 Spondylosis without myelopathy or radiculopathy, lumbar region (principal); M54.5 Low back pain; G89.29 Other chronic pain; M51.36 Other intervertebral disc degeneration, lumbar region; M41.9 Scoliosis, unspecified; M79.7 Fibromyalgia; M50.10 Cervical disc disorder with radiculopathy, unspecified cervical region; M50.30 Other cervical disc degeneration, unspecified cervical region; M06.9 Rheumatoid arthritis, unspecified; I73.9 Peripheral vascular disease, unspecified; E03.9 Hypothyroidism, unspecified; K21.9 Gastro-esophageal reflux disease without esophagitis; Z86.73 Personal history of transient ischemic attack (TIA), and cerebral infarction without residual deficits; F17.200 Nicotine dependence, unspecified, uncomplicated; Z79.82 Long term (current) use of aspirin
CPT/HCPCS: J1030; J2250; J3010; S0020

== ENCOUNTER 2017-12-01 10:56 | Day surgery (SDC) | payer OTHER ==
[~2017-12-01] VITALS: Ht 167.6 cm; Wt 81.7 kg
[~2017-12-01 10:56] MED LIST changes: +CONSTULOSE10 GM/15 M PO
== END 2017-12-01 12:25 | disposition home or self-care (01) ==
LOC: PAIN 10:56
PROC: 3E0T3TZ Introduction of Destructive Agent into Peripheral Nerves and Plexi, Percutaneous Approach (ICD-10-PCS; principal; 2017-12-01)
PROC: BR161ZZ Fluoroscopy of Lumbar Facet Joint(s) using Low Osmolar Contrast (ICD-10-PCS; principal; 2017-12-01)
DX: M47.816 Spondylosis without myelopathy or radiculopathy, lumbar region (principal); M54.5 Low back pain; G89.29 Other chronic pain; M51.36 Other intervertebral disc degeneration, lumbar region; M79.7 Fibromyalgia; M79.1 Myalgia; M06.9 Rheumatoid arthritis, unspecified; M41.9 Scoliosis, unspecified; E03.9 Hypothyroidism, unspecified; I10 Essential (primary) hypertension; Z86.73 Personal history of transient ischemic attack (TIA), and cerebral infarction without residual deficits; Z79.82 Long term (current) use of aspirin; Z79.891 Long term (current) use of opiate analgesic
CPT/HCPCS: J1030; J2250; J3010; S0020

== ENCOUNTER 2017-12-03 11:45 | Day surgery (SDC) | payer OTHER ==
[~2017-12-03] VITALS: Ht 167.6 cm; Wt 81.7 kg
== END 2017-12-03 13:20 | disposition home or self-care (01) ==
LOC: PAIN 11:45 → SDC 12:30 → PAIN 13:20
DX: M47.816 Spondylosis without myelopathy or radiculopathy, lumbar region (principal); G89.29 Other chronic pain; M54.5 Low back pain; M51.36 Other intervertebral disc degeneration, lumbar region; M79.7 Fibromyalgia; M06.9 Rheumatoid arthritis, unspecified; Z79.82 Long term (current) use of aspirin; F17.200 Nicotine dependence, unspecified, uncomplicated; E03.9 Hypothyroidism, unspecified
CPT/HCPCS: J1030; J2250; J3010; S0020